=== PATIENT | male | born 1950 | race Caucasian/White ===

== ENCOUNTER 2019-12-18 15:50 | Inpatient (IN) | payer OTHER ==
[~2019-12-18] VITALS: Ht 182.9 cm; Wt 94.3 kg
--- NOTE | 2019-12-18 18:06 | NUR ---
HOSPITAL DINNER PROVIDED FOR PT. PT EATING WITH CARLA.
--- NOTE | 2019-12-18 18:32 | NUR ---
TRANSFERED PT TO MHU IN STABLE CONDITION.PT REMAINED CALM AND COMFORTBLE THE WHOLE ER STAY.
[2019-12-18 19:30] VITALS: BP 145/82
[2019-12-18] MEDS ORDERED: LORAZEPAM 0.5 MG TABLET PO PRN (19:45)
[2019-12-18] MEDS ORDERED: TEMAZEPAM 7.5 MG CAPSULE PO PRN (19:45)
[2019-12-18] MEDS ORDERED: MAGNESIUM HYDROXIDE 30 ML LIQUID UDC PO PRN (19:45)
[2019-12-18] MEDS ORDERED: ACETAMINOPHEN 325 MG TABLET PO PRN (19:45)
[2019-12-18] MEDS ORDERED: MAG HYDROX/AL HYDROX/SIMETH 30 ML LIQUID UDC PO PRN (19:45)
--- NOTE | 2019-12-18 22:45 | NUR ---
Admission Note: 69 y.o. male brought to MHU from ER via gurney accompanied by ER staff. Pt admitted on a 5150 for DTO under the care of Dr Rasmussen and Dr Grace with a dx of Psychosis. According to the 5150, Pt was biba to [facility] in [place] due to homicidal ideation and wanting to hit and punish people. Pt was manic with pressured speech and obsessive thoughts, feels homicidal toward people in general. Pt agrees to and reflects what is written on the Hold. Upon face to face evaluation, Pt is A+Ox3, and states he is here Because [place] been feeling like I really want to hurt people these last couple of weeks. Pt denies wanting to hurt anyone specific, and has no plan. Affect is elevated, speech is pressured, mood is labile, thought process is scattered and disorganized. Pt is hyperverbal, superficially bright, with tangential thoughts and flight of ideas. Pt constantly paces the unit and appears anxious and restless, but he refuses any anti-anxiety or sleep medications. Pt is unable to verbalize or formulate a viable or realistic plan for self care or safety. Pt cooperative with admission process, but unable to sign paperwork d/t manic behavior and hyperactivity. Presents with poor sleep pattern. Denies SI and CFS inside the hospital. Denies AH/VH/HI. Pt denies any access to firearms or any legal hx, denies any current or prior smoking or substance abuse issues. Skin assessment completed-c/d/i. Medical h/o Bipolar, BPH, anxiety, DM, renal disease, kidney stones, MDD, and psychosis. Allergies to PCN and tamulosin noted. Dr Rasmussen and Dr Grace notified of admission, meds reconciled, orders received. Pt belongings inventoried, contraband placed in unit locker. Patient Rights handbook and Advisement given, rights and unit rules explained to Pt, who needs reinforcement d/t cognitive deficit. Pt oriented to the unit, the phone, the restrooms, and his room. Q 15 minute safety checks initiated for safety.
--- NOTE | 2019-12-19 03:29 | NUR ---
Social Work Individual Therapy: workers compensation claims assistant met with patient for brief counseling. Patient presents with manic mood. This designer writer was able to have a meaningful conversation. Patient stated that he only has thoughts of homicide. He stated that if he were to leave the hospital "he would bomb a car". This designer writer actively listened and notified the doctor.
--- NOTE | 2019-12-19 05:48 | NUR ---
Contacted Dr Tesfaye through [facility] regarding medication reconciliation. Per Dr Tesfaye, he is unable to reconcile medications until the morning. Will endorse to oncoming nurse.
[2019-12-19 07:30] VITALS: BP 150/75
--- NOTE | 2019-12-19 07:30 | NUR ---
RECEIVED PATIENT UP AND AMBULATING DOWN THE HALLWAY. NO C/O PAIN AND NO SOB NOTED AT THIS TIME. NO AGGRESSIVE BEHAVIOR , CALM AND HYPERVERBAL . WILL CONTINUE TO MONITOR. KEPT CLEAN AND DRY AT ALL TIMES. SAFETY AND COMFORT PROVIDED AT ALL TIMES. WILL CONTINUE TO MONITOR.
[2019-12-19] MEDS ORDERED: LAMOTRIGINE 100 MG TABLET PO SCH (10:15)
--- NOTE | 2019-12-19 11:05 | NUR ---
Social Work UR Note: The on-going Clinical Faculty. assigned is Elinor Brown. her direct line is [phone], AUTH# [id number], fax# [phone]. This service writer advisor contacted Elinor and left her a voicemail.
--- NOTE | 2019-12-19 11:53 | NUR ---
Social Work Initial Discharge Plan: Patient currently resides at [address] [address]; [phone]) alone. Per patient, he would like to return back home upon discharge. farmworker rice will work with the patient and the MD regarding appropriate discharge planning. farmworker rice will form a safe and proper discharge plan.
--- NOTE | 2019-12-19 11:53 | NUR ---
Social Work Family Contact: vegetable ii farmworker contacted patient's sister Angelica ([phone]) to gather collateral, however; this financial writer was unable to reach. This financial writer left a voicemail.
[2019-12-19] MEDS: TOPIRAMATE 25 MG TABLET PO SCH ×2 (12:24→17:25)
[2019-12-19 16:00] VITALS: BP 129/67
[2019-12-19] MEDS ORDERED: OLANZAPINE 5 MG TABLET PO PRN (16:00)
[2019-12-19 20:00] VITALS: BP 135/66
[2019-12-19] MEDS ORDERED: OLANZAPINE 5 MG TABLET PO SCH (20:00)
[2019-12-19] MEDS ORDERED: OLANZAPINE 2.5 MG TABLET PO SCH ×2 (20:00)
--- NOTE | 2019-12-19 20:00 | NUR ---
RECEIVED PATIENT IN THE DAY ROOM WATCHING TV AND CONVERSING WITH HIS ROOMMATE. PATIENT NOTED A/O X 3. ABLE TO AMBULATE WITH STEADY GAIT. PT NOTED HYPERVERBAL, GRANDIOSE DELUSIONAL THOUGHTS AND INTRUSIVE. AFFECT IS BRIGHT, MOOD IS LABILE. UPON INTERVIEW, PATIENT STATED THAT HE IS HAVING CONTINUES THOUGHTS TO HARM PEOPLE BUT HE STATE THAT "I ONLY THINK ABOUT IT BUT I DON'T WANT TO HARM ANYBODY". PATIENT IS ABLE TO CFS. V/S STABLE AT THIS TIME. PATIENT IS REASSURE FOR HIS SAFETY. WILL CONTINUE TO MONITOR.
[2019-12-20 08:00] VITALS: BP 118/63
[2019-12-20] MEDS: TOPIRAMATE 25 MG TABLET PO SCH ×3 (08:28→16:35)
--- NOTE | 2019-12-20 11:11 | NUR ---
Social Work UR Note: The on-going Data Storage Specialist. assigned is Elinor Brown. her direct line is [phone], AUTH# [id number], fax# [phone]. This assembly instructions writer contacted Elinor and left her a voicemail.
[2019-12-20 16:00] VITALS: BP 134/62
[2019-12-20] MEDS ORDERED: OLANZAPINE 5 MG TABLET PO SCH (20:00)
--- NOTE | 2019-12-20 20:15 | NUR ---
RECEIVED PATIENT IN THE DAY ROOM. HE IS NOTED A/O X 3. CALM AND PLEASANT UPON APPROACHED. CONTINUE HYPERVERBAL, GRANDIOSE DELUSION. MOOD IS ELATE,. WILL CONTINUE TO MONITOR. AFFECT IS BRIGHT. PT IS REASSURED FOR HIS SAFETY. SAFETY AND FALL PRECAUTION IN PLACE
[2019-12-20 20:41] VITALS: BP 113/59
[2019-12-21 07:30] VITALS: BP 121/59
[2019-12-21] MEDS: TOPIRAMATE 25 MG TABLET PO SCH ×3 (08:38→16:52)
--- NOTE | 2019-12-21 09:15 | NUR ---
Social Work UR Note: The on-going Lump Inspector. assigned is Elinor Brown. her direct line is [phone], AUTH# [id number], fax# [phone]. This editorial writer contacted Elinor and left her a voicemail.
--- NOTE | 2019-12-21 09:17 | NUR ---
Social Work PC Hearing Notification: pick and shovel worker contacted patient's sister Angelica, ([phone]) and notified patient's probable cause of hearing today. This newswriter left a voicemail.
--- NOTE | 2019-12-21 12:24 | NUR ---
Social Work UR Note: The on-going Corporate Relations Director. assigned is Elinor Moss her direct line is [phone], AUTH# [id number], fax# [phone]. Per Elinor, she authorized the stay until 12/24/19 and this bid writer will sent in clinicals on 12/25/2019.
[2019-12-21 16:09] VITALS: BP 130/55
[2019-12-21] MEDS ORDERED: OLANZAPINE 5 MG TABLET PO SCH (20:00)
[2019-12-21 20:30] VITALS: BP 141/71
[2019-12-22 07:37] LABS: CREATININE 1.8 mg/dL (0.6-1.3); MAGNESIUM 2.1 mg/dL (1.8-2.4); PHOSPHOROUS 3.1 mg/dL (2.5-4.9); POTASSIUM 4.2 mmol/L (3.5-5.1)
[2019-12-22 07:49] LABS: BASOPHILS # (AUTO) 0.1 K/uL (0.0-8.0); BASOPHILS % (AUTO) 0.8 % (0.0-2.0); EOSINOPHILS # (AUTO) 0.4 K/uL (0.0-0.7); EOSINOPHILS % (AUTO) 4.3 % (0.0-7.0); HEMATOCRIT 40.3 % (36.7-47.1); HEMOGLOBIN 13.8 g/dL (12.5-16.3); LYMPHOCYTES # (AUTO) 2.7 K/uL (20.0-40.0); LYMPHOCYTES % (AUTO) 32.3 % (20.5-51.5); MEAN CORPUSCULAR HGB CONC 34 g/dL (32.5-36.3); MEAN CORPUSCULAR VOLUME 93.2 fL (73.0-96.2); MONOCYTES # (AUTO) 0.6 K/uL (2.0-10.0); MONOCYTES % (AUTO) 7.5 % (0.0-11.0); NEUTROPHILS # (AUTO) 4.6 K/uL (1.8-8.9); NEUTROPHILS % (AUTO) 55.1 % (38.5-71.5); PLATELET COUNT (AUTO) 259 K/uL (152-348); RED BLOOD CELL COUNT(AUTO) 4.32 MIL/uL (4.06-5.63); WHITE BLOOD COUNT (AUTO) 8.4 K/uL (3.6-10.2)
[2019-12-22 07:53] VITALS: BP 142/80
--- NOTE | 2019-12-22 08:00 | NUR ---
Received patient in Bed, awake and verbally responsive. No signs of distress noted. No complain of Pain or discomfort. No aggressive behavior noted. No SI/HI noted. Will continue to monitor.
[2019-12-22] MEDS: TOPIRAMATE 25 MG TABLET PO SCH ×2 (09:29→12:19)
--- NOTE | 2019-12-22 11:54 | NUR ---
Social Work Note: farmworker pullet farm asked patient if may contact patient's primary doctor ([phone]) and patient gave permission. This marketing copywriter contacted patient's doctor office ([phone]) who gave 's number to connect with Dr. Grady.
--- NOTE | 2019-12-22 13:36 | NUR ---
Social Work Individual Therapy: roll on worker met with patient for brief counseling. Patient presents with manic mood. This publicity writer was able to have a meaningful conversation. Patient stated that he no longer has any homicidal thoughts and that he is feeling better. This publicity writer actively listened and provided support. This publicity writer safety planned with the patient.
--- NOTE | 2019-12-22 15:21 | NUR ---
Social Work Firearms Report: Ski Base Trimmer completed and submitted a [facility] firearms report for 5250 grave disability certification. A copy of report has been placed in patient chart.
--- NOTE | 2019-12-22 15:48 | NUR ---
Social Work Substance Abuse Intervention: Patient was provided with a brief substance abuse intervention and referred to [facility] [address] [place] [address]: ), [facility] [address] [place] [address]: ), [facility] [address] [address]: ).
[2019-12-22 16:56] VITALS: BP 122/68
[2019-12-22] MEDS ORDERED: TOPIRAMATE 25 MG TABLET PO SCH (17:00)
[2019-12-22] MEDS: TOPIRAMATE 100 MG TABLET PO SCH (17:07)
[2019-12-22] MEDS: OLANZAPINE 5 MG TABLET PO SCH (20:01)
[2019-12-22 20:15] VITALS: BP 134/74
[2019-12-23 07:30] VITALS: BP 110/51
[2019-12-23] MEDS: TOPIRAMATE 100 MG TABLET PO SCH ×2 (08:25→16:43)
[2019-12-23 16:42] VITALS: BP 112/68
[2019-12-23] MEDS: OLANZAPINE 5 MG TABLET PO SCH (20:05)
[2019-12-23 20:30] VITALS: BP 124/67
[2019-12-24 07:30] VITALS: BP 119/66
[2019-12-24] MEDS: TOPIRAMATE 100 MG TABLET PO SCH ×2 (08:17→17:00)
[2019-12-24 15:47] VITALS: BP 140/68
--- NOTE | 2019-12-24 20:00 | NUR ---
RECEIVED PT IN THE DAY ROOM. HE IS NOTED CALM AND PLEASANT UPON APPROACHED. AFFECT IS BRIGHT. MOOD IS EUPHORIC. NO AGGRESSIVE HOSTILE BX NOTED AT THIS TIME, PATIENT DENIES SI/HI/VA/AV HE IS ABLE TO CFS. HE IS REASSURED FOR HIS SAFETY. SAFETY AND FALL PRECAUTION IN PLACE. COMPLIANT WITH MEDICATION REGIMENT, WILL CONTINUE TO MONITOR
[2019-12-24] MEDS: OLANZAPINE 5 MG TABLET PO SCH (20:47)
[2019-12-24 22:26] VITALS: BP 123/66
[2019-12-25 07:30] VITALS: BP 112/66
[2019-12-25] MEDS: TOPIRAMATE 100 MG TABLET PO SCH ×2 (08:27→17:14)
--- NOTE | 2019-12-25 09:06 | NUR ---
Social Work UR Note: The on-going Metal Extrusion Supervisor. assigned is Elinor Brown. her direct line is [phone], AUTH# [id number], fax# [phone]. This senior copywriter left Elinor a voicemail to confirm patient's authorization. This senior copywriter is waiting for Elinor to call back.
--- NOTE | 2019-12-25 10:17 | NUR ---
DR SHAH HERE AND SEEN PATIENT WITH NEW ORDERS AND NOTED.
--- NOTE | 2019-12-25 10:50 | NUR ---
Social Work UR Note: The on-going Excelsior Picker. assigned is Elinor Brown. her direct line is [phone], AUTH# [id number], fax# [phone]. This specifications writer left Elinor a voicemail to confirm patient's authorization. This specifications writer is waiting for Elinor to call back. This specifications writer contacted Tamanna another case management rn who is working on patient's case. Auth: [id number]. This specifications writer sent in patient's clinicals H & P psychiatric notes and progress notes. Per Tamanna, she will review the case and will contact this specifications writer.
[2019-12-25] MEDS: OLANZAPINE 5 MG TABLET PO SCH ×2 (12:56→20:12)
--- NOTE | 2019-12-25 13:59 | NUR ---
Social Work UR Note: The on-going Booth Cleaner. assigned is Elinor Moss her direct line is [phone], AUTH# [id number], fax# [phone]. This engineering technical writer left Elinor a voicemail to confirm patient's authorization. This engineering technical writer is waiting for Elinor to call back. This engineering technical writer contacted Tamanna another caser up who is working on patient's case. Auth: [id number]. This engineering technical writer sent in patient's clinicals H & P psychiatric notes and progress notes. Per Tamanna, she will authorize patient's stay until 12/26.
[2019-12-25 15:21] VITALS: BP 122/62
[2019-12-25 20:53] VITALS: BP 139/70
[2019-12-26 07:13] LABS: BASOPHILS # (AUTO) 0.1 K/uL (0.0-8.0); BASOPHILS % (AUTO) 0.9 % (0.0-2.0); EOSINOPHILS # (AUTO) 0.3 K/uL (0.0-0.7); EOSINOPHILS % (AUTO) 5.7 % (0.0-7.0); HEMATOCRIT 39.4 % (36.7-47.1); HEMOGLOBIN 13.1 g/dL (12.5-16.3); LYMPHOCYTES % (AUTO) 32.7 % (20.5-51.5); MEAN CORPUSCULAR HEMOGLOBIN 31.2 uug (23.8-33.4); MEAN CORPUSCULAR HGB CONC 33 g/dL (32.5-36.3); MEAN CORPUSCULAR VOLUME 93.5 fL (73.0-96.2); MONOCYTES # (AUTO) 0.5 K/uL (2.0-10.0); MONOCYTES % (AUTO) 8.7 % (0.0-11.0); NEUTROPHILS # (AUTO) 3.2 K/uL (1.8-8.9); PLATELET COUNT (AUTO) 265 K/uL (152-348); RED BLOOD CELL COUNT(AUTO) 4.21 MIL/uL (4.06-5.63); WHITE BLOOD COUNT (AUTO) 6.1 K/uL (3.6-10.2)
[2019-12-26 07:28] LABS: BILIRUBIN,TOTAL 0.3 mg/dL (0.2-1.0); CREATININE 1.9 mg/dL (0.6-1.3); MAGNESIUM 2.1 mg/dL (1.8-2.4); PHOSPHOROUS 3.4 mg/dL (2.5-4.9); POTASSIUM 4.4 mmol/L (3.5-5.1); TOTAL PROTEIN, SERUM 6.3 g/dL (6.4-8.2)
[2019-12-26 07:30] VITALS: BP 119/69
--- NOTE | 2019-12-26 08:51 | NUR ---
Social Work UR Note: The on-going Plug Sorter. assigned is Elinor Moss her direct line is [phone], AUTH# [id number], fax# [phone]. This leader writer left Elinor a voicemail to confirm patient's authorization this leader writer also sent clinicals. This leader writer contacted Tamanna another corrections caseworker who is working on patient's case. Auth: [id number]. This leader writer sent in patient's clinicals H & P psychiatric notes and progress notes. Per Tamanna, she will authorize patient's stay until 12/26.
[2019-12-26] MEDS: TOPIRAMATE 100 MG TABLET PO SCH ×2 (08:52→16:09)
[2019-12-26] MEDS: OLANZAPINE 5 MG TABLET PO SCH ×3 (08:53→20:42)
--- NOTE | 2019-12-26 09:18 | NUR ---
AWAKE ALERT ORIENTED IN THE D/ROOM HAVING ACTIVITIES SEEMS TO BE ENJOYING IT COMPLIANT WITH MEDICATIONS AND CARE.
[2019-12-26 09:49] LABS: *BILIRUBIN,URIN NEGATIVE (NEGATIVE); *BLOOD, URINE NEGATIVE (NEGATIVE); *CLARITY,URINE CLEAR (CLEAR); *COLOR,URINE YELLOW (YELLOW); PH,URINE 6.5 (5.0-8.0); UGLUCOSE NEGATIVE (NEGATIVE)
[2019-12-26 09:50] LABS: *KETONES,URINE NEGATIVE (NEGATIVE); *UROBILINOGEN,URINE 0.2 E.U./dl (NORMAL); LEUKOCYTE ESTERASE ,URINE NEGATIVE (NEGATIVE); NITRITE, URINE NEGATIVE (NEGATIVE)
[2019-12-26 10:03] LABS: *CREATININE,URINE 83.3 mg/dL (30-125); *URINE TOTAL PROTEIN RANDOM 13.6 mg/dL (<150/24HR)
[2019-12-26 16:15] VITALS: BP 150/60
[2019-12-26 20:02] VITALS: BP 113/64
--- NOTE | 2019-12-26 22:08 | NUR ---
GPS/ Received pt up and walking within unit. No c/o abnormal, no new behavior at this time. Pt aware of new order for Accu check in am before breakfast. Cooperative with routine medication and resting.
--- NOTE | 2019-12-27 06:52 | NUR ---
Pt slept well during night up to 7.15min. Blood sugar checked as order at 193/dl. pt understand new order and possibly insulin before breakfast.
[2019-12-27 07:30] VITALS: BP 117/63
[2019-12-27] MEDS ORDERED: BLOOD SUGAR DIAGNOSTIC 1 EACH STRIP VI SCH (07:30)
[2019-12-27] MEDS: TOPIRAMATE 100 MG TABLET PO SCH ×2 (09:01→17:37)
[2019-12-27] MEDS: OLANZAPINE 5 MG TABLET PO SCH ×3 (09:02→20:34)
[2019-12-27 09:09] LABS: ALBUMIN 2.9 g/dL (2.9-4.4); ALPHA-1-GLOBULIN 0.1 g/dL (0.0-0.4); ALPHA-2-GLOBULIN 0.6 g/dL (0.4-1.0); BETA GLOBULIN 0.9 g/dL (0.7-1.3); GAMMA GLOBULIN 1.2 g/dL (0.4-1.8); GLOBULIN, TOTAL 2.9 g/dL (2.2-3.9); M-SPIKE Not Observed g/dL (Not Observed)
--- NOTE | 2019-12-27 09:42 | NUR ---
Social Work Individual Therapy: embroidery worker met with patient for brief counseling. Patient presents with manic mood. Patient stated that he no long feels homicidal and that his thoughts have disappeared. Patient stated that he feels that he received the proper treatment at the hospital and that he "enjoyed" his stay here. This securities underwriter actively listened and provided support. This securities underwriter safety planned with the patient.
[2019-12-27 10:45] LABS: BASOPHILS # (AUTO) 0.1 K/uL (0.0-8.0); EOSINOPHILS # (AUTO) 0.3 K/uL (0.0-0.7); HEMATOCRIT 39.2 % (36.7-47.1); LYMPHOCYTES # (AUTO) 2.1 K/uL (20.0-40.0); LYMPHOCYTES % (AUTO) 35.1 % (20.5-51.5); MEAN CORPUSCULAR HEMOGLOBIN 31.1 uug (23.8-33.4); MEAN CORPUSCULAR HGB CONC 33 g/dL (32.5-36.3); MEAN CORPUSCULAR VOLUME 94.1 fL (73.0-96.2); MONOCYTES # (AUTO) 0.4 K/uL (2.0-10.0); MONOCYTES % (AUTO) 7.6 % (0.0-11.0); NEUTROPHILS % (AUTO) 51.3 % (38.5-71.5); PLATELET COUNT (AUTO) 262 K/uL (152-348); RED BLOOD CELL COUNT(AUTO) 4.17 MIL/uL (4.06-5.63); WHITE BLOOD COUNT (AUTO) 5.9 K/uL (3.6-10.2)
[2019-12-27 10:56] LABS: BILIRUBIN,TOTAL 0.3 mg/dL (0.2-1.0); POTASSIUM 4.2 mmol/L (3.5-5.1); TOTAL PROTEIN, SERUM 6.4 g/dL (6.4-8.2)
--- NOTE | 2019-12-27 11:12 | NUR ---
Social Work Family Contact: template worker spoke with patient's friend Porfirio ([phone]) who stated that he will grain picker patient at 10AM on 12/28/2019.
[2019-12-27 16:00] VITALS: BP 126/68
[2019-12-27] MEDS ORDERED: INSULIN REGULAR, HUMAN 300 UNIT/3 ML VIAL SQ PRN (16:30)
[2019-12-27] MEDS ORDERED: DEXTROSE 50% 50 ML DISP.SYRIN IV PRN (16:30)
[2019-12-27] MEDS: BLOOD SUGAR DIAGNOSTIC 1 EACH STRIP VI SCH ×2 (17:32→20:34)
--- NOTE | 2019-12-27 17:55 | NUR ---
1630 BS accucheck 153 mg/dl, patient refused regular insulin coverage
[2019-12-27 20:47] VITALS: BP 125/55
--- NOTE | 2019-12-28 06:28 | NUR ---
Patient refused hs accucheck. Will continue to monitor for safety.
[2019-12-28 07:30] VITALS: BP 130/62
[2019-12-28] MEDS: BLOOD SUGAR DIAGNOSTIC 1 EACH STRIP VI SCH (07:30)
--- NOTE | 2019-12-28 08:02 | NUR ---
Social Work Discharge Note: Patient will be discharged back home [address], [place] [address]; ([phone]). This telegraphic typewriter operator chief left patients sister Angelica ([phone]) a voicemail. Patients friend Porfirio ([phone]) will pickle solution maker patient at 10AM. Upon discharge, patient appear to be calm, cooperative and happy to be going home. Patient denies suicidal and homicidal ideation. Patient will follow up with Dr. Grady (meter setter) at [address], [place] [address]; ([phone]) on December 28 at 10AM (via phone meeting) and will follow up with (psychiatrist) Dr. Joshi at [facility] [address], [facility], [address]; ([phone]) on March 02 at 1:40 PM (via phone meeting) and will discuss smoking cessation and address substance abuse dependency. Due to COVID-19, patients outpatient appointments will be via phone call. Patient was provided with mental health resources: [facility] ;([phone]), [facility]; ([phone]), [facility]; ([phone]), National Suicide Prevention Lifeline; ( ). Patient was provided with substance abuse referrals [facility] ([phone]) and was also referred to [facility] ([phone]). Patient presents with euthymic mood and congruent affect.
[2019-12-28] MEDS: OLANZAPINE 5 MG TABLET PO SCH (08:24)
[2019-12-28] MEDS: TOPIRAMATE 100 MG TABLET PO SCH (08:26)
--- NOTE | 2019-12-28 10:20 | NUR ---
1000 Discharged instructions given to the patient regarding medications to continue at home and prescription given- patient verbalized understanding. Patient condition fair, denies SI/HI. No delusion . No a/v hallucination noted. 1010 Patient discharged home, picked up by friend Porfirio via private car.
== END 2019-12-28 12:00 | disposition home or self-care (01) | DRG 885 ==
LOC: ER 15:54 → GPS 18:08
PROVIDERS: ADMIT Psychiatry & Neurology Psychosomatic Medicine; ATTEND Hospitalist
DX: F31.9 Bipolar disorder, unspecified (principal); N17.0 Acute kidney failure with tubular necrosis; E11.65 Type 2 diabetes mellitus with hyperglycemia; F23 Brief psychotic disorder; F42.9 Obsessive-compulsive disorder, unspecified; F41.9 Anxiety disorder, unspecified; G30.9 Alzheimer's disease, unspecified; F02.80 Dementia in other diseases classified elsewhere, unspecified severity, without behavioral disturbance, psychotic disturbance, mood disturbance, and anxiety; F60.9 Personality disorder, unspecified; G89.4 Chronic pain syndrome; Z73.6 Limitation of activities due to disability; E78.5 Hyperlipidemia, unspecified; R26.9 Unspecified abnormalities of gait and mobility; Z72.89 Other problems related to lifestyle
CPT/HCPCS: 36415; 71045; 76770; 83735; 83970; 84100; 84155; 84156; 84165; 84300; 85025; 87086; 93005; A4663; J1815